=== PATIENT | male | born 1945 | race Hispanic/Latino ===

== ENCOUNTER → 2018-08-02 | Outpatient (CLI) | payer MEDICARE ==
[~2018-08-02] MED LIST: ACET1TAB25 PO; CARV12.511 PO; CORTSOL AD; CYCL30DR OP; GABA-531 PO; PANT40TA25 PO; RAMI10CA69 PO; ROSU20TA PO; SITA1TAB6 PO; TRAZ-187 PO
== END | disposition home or self-care (01) ==
LOC: RAH 09:24
PROVIDERS: ATTEND Physical Medicine & Rehabilitation
DX: M54.16 Radiculopathy, lumbar region (principal); M17.11 Unilateral primary osteoarthritis, right knee; M25.861 Other specified joint disorders, right knee
CPT/HCPCS: 72114; 73560

== ENCOUNTER → 2019-06-26 | Outpatient (CLI) | payer MEDICARE ==
[~2019-06-26] MED LIST changes: -ROSU20TA PO; +ROSU20TA23 PO
== END | disposition home or self-care (01) ==
LOC: OIH 08:38
PROVIDERS: ATTEND Family Medicine
DX: I10 Essential (primary) hypertension (principal); I70.0 Atherosclerosis of aorta; M47.816 Spondylosis without myelopathy or radiculopathy, lumbar region
CPT/HCPCS: 71046

== ENCOUNTER 2020-04-11 15:30 | Inpatient (IN) | payer OTHER, MEDICARE ==
[~2020-04-11] VITALS: Ht 172.7 cm; Wt 84.8 kg
[~2020-04-11 15:30] MED LIST changes: -CORTSOL AD; +DONE10TA36 PO; +EVOL140P3 SQ; +FAMO20TA8 PO; -GABA-531 PO; +INSU300I SQ; +MEMA10TA55 PO; +OLAN15TA18 PO; -PANT40TA25 PO; +PANT40TA55 PO; -SITA1TAB6 PO; -TRAZ-187 PO
[2020-04-11 17:06] LABS: BASOPHILS % (AUTO) 0.2 % (0.0-5.0); EOSINOPHILS % (AUTO) 2.2 % (0.0-8.0); HEMATOCRIT 43.8 % (42-54); MEAN CORPUSCULAR HGB CONC 33.6 g/dL (32.0-36.0); MEAN CORPUSCULAR VOLUME 92.4 fL (79-99); NEUTROPHILS % (AUTO) 65.2 % (40.0-77.0); PLATELET COUNT (AUTO) 394 K/uL (130-400); RED BLOOD CELL COUNT(AUTO) 4.74 MIL/uL (4.50-6.20); RED CELL DISTRIBUTION WIDTH 13.5 % (11.0-15.5)
[2020-04-11 17:14] LABS: ABG BASE EXCESS -6.9 mmol/L (-2.0-3.0); ABG HCO3 17.4 mmol/L (21.0-28.0); ABG OXYGEN SATURATION 95.6 % (95.0-99.0); ABG PCO2 32 mmHg (35-48)
[2020-04-11 17:15] LABS: INR 0.96 (0.85-1.15); PARTIAL THROMBOPLASTIN TIME 35.1 SEC (26.3-35.5); PROTHROMBIN TIME 10.4 SEC (9.6-11.6)
[2020-04-11 17:27] LABS: FERRITIN 479 ng/mL (30-400)
[2020-04-11 17:35] LABS: CREATININE 1.3 mg/dL (0.5-1.5); POTASSIUM 4.2 mmol/L (3.5-5.1)
[2020-04-11 17:40] LABS: ALBUMIN 2.9 g/dL (3.5-5.0); BILIRUBIN,TOTAL 0.5 mg/dL (0.2-1.0); TOTAL PROTEIN, SERUM 8.7 g/dL (6.0-8.3)
[2020-04-11 18:25] LABS: B-TYPE NATRIURETIC PEPTIDE 212 pg/mL (0-100)
[2020-04-11] MEDS ORDERED: DEXAMETHASONE SOD PHOSPHATE 4 MG/ML 1ML VIAL ONE (20:04)
[2020-04-11] MEDS ORDERED: ENOXAPARIN SODIUM 80 MG/0.8 ML SQ SCH (21:00)
[2020-04-11] MEDS: INSULIN R PO SS1 SQ SCH (21:00)
[2020-04-12 05:54] LABS: HEMATOCRIT 40.8 % (42-54); LYMPHOCYTES % (AUTO) 19.7 % (21.0-51.0); MEAN CORPUSCULAR HEMOGLOBIN 32.7 pg (27.0-33.0); MEAN CORPUSCULAR HGB CONC 35.3 g/dL (32.0-36.0); MEAN CORPUSCULAR VOLUME 92.5 fL (79-99); MONOCYTES % (AUTO) 3.5 % (3.0-13.0); NEUTROPHILS % (AUTO) 76.1 % (40.0-77.0); PLATELET COUNT (AUTO) 412 K/uL (130-400); RED BLOOD CELL COUNT(AUTO) 4.41 MIL/uL (4.50-6.20); RED CELL DISTRIBUTION WIDTH 13.4 % (11.0-15.5); WHITE BLOOD COUNT (AUTO) 5.5 K/uL (4.8-10.8)
[2020-04-12 06:32] LABS: ALANINE AMINOTRANSFERASE 13 U/L (12-78); ALBUMIN 2.5 g/dL (3.5-5.0); ASPARTATE AMINOTRANSFERASE 31 U/L (10-37); BILIRUBIN,TOTAL 0.4 mg/dL (0.2-1.0); CARBON DIOXIDE 23 mmol/L (21-32); CHLORIDE 99 mmol/L (101-111); CREATININE 1.3 mg/dL (0.5-1.5); GLOMERULAR FILTR. RATE CALC 57 mL/min (>60); GLUCOSE,RANDOM 312 mg/dL (70-105); POTASSIUM 4.8 mmol/L (3.5-5.1); SODIUM SERUM 136 mmol/L (136-145); TOTAL PROTEIN, SERUM 7.9 g/dL (6.0-8.3); UREA NITROGEN, BLOOD 28 mg/dL (7-18)
[2020-04-12] MEDS: INSULIN R PO SS1 SQ SCH ×4 (07:30→21:00)
[2020-04-12] MEDS: DEXAMETHASONE SOD PHOSPHATE 4 MG/ML 1ML VIAL IVP SCH (09:00)
[2020-04-12] MEDS ORDERED: ENOXAPARIN SODIUM 60 MG/0.6 ML SQ ONE (10:15)
[2020-04-12] MEDS ORDERED: INSULIN HUMULIN R 100 UNIT/ML 3ML ONE ×3 (10:16→18:28)
[2020-04-12] MEDS ORDERED: ENOXAPARIN SODIUM 0.5 MG/KG EACH SQ SCH (11:00)
[2020-04-12] MEDS ORDERED: ZOLPIDEM TARTRATE 5 MG TAB PO PRN (11:00)
[2020-04-12] MEDS ORDERED: HYDRALAZINE HCL 20 MG/ML VIAL IV PRN (11:00)
[2020-04-12] MEDS ORDERED: IPRATROPIUM/ALBUTEROL SULFATE 3 ML SOLUTION IH PRN (11:00)
[2020-04-12] MEDS: FUROSEMIDE 10 MG/ML 4ML VIAL IV SCH (11:00)
[2020-04-12] MEDS ORDERED: ONDANSETRON HCL 4 MG/2 ML VIAL IVP PRN (11:00)
[2020-04-12] MEDS ORDERED: LACTULOSE 20 GM/30 ML UDCUP PO PRN (11:00)
[2020-04-12] MEDS ORDERED: ENOXAPARIN SODIUM 40 MG/0.4 ML SYRINGE SQ SCH (11:15)
[2020-04-12 11:45] LABS: ABG BASE EXCESS -5.6 mmol/L (-2.0-3.0); ABG HCO3 19.5 mmol/L (21.0-28.0); ABG OXYGEN SATURATION 94.9 % (95.0-99.0); ABG PCO2 37 mmHg (35-48)
--- NOTE | 2020-04-12 15:28 | NUR ---
INITIAL SW spoke with patient's son, Christy Maki, [phone]. Patient lives with spouse, Skyla Maki. Spouse presently hospitalized at this hospital with COVID 19. Patient has no Home health but does have PHC with [facility] 15 hours a week. Son is provider. DME: shower chair, cane, CPAP, glucometer (uses insulin). Patient is able to complete ADL's independently as per son but may need some help upon discharge. Patient drives. PCP is Dr. Srikanth Mera. Pharmacy is [facility]. DCP is home. As per son, patient and patient's spouse were exposed to oil transport driver from [facility] that was positive for COVID 19. Son is presently in quarantine as well. Patient's correct address: [address] [place] [id number] Addendum: 04/12/20 at 1535 by DENISSE SEGOVIA SS Amended: Links added.
[2020-04-12] MEDS ORDERED: ALBUTEROL INHALER 90MCG/INH IH PRN (16:15)
[2020-04-12] MEDS ORDERED: CARVEDILOL 12.5 MG TABLET PO ONE (20:45)
[2020-04-12] MEDS ORDERED: FUROSEMIDE 10 MG/ML 4ML VIAL ONE (20:45)
[2020-04-12] MEDS: FAMOTIDINE 20MG TAB 20 MG TAB PO SCH (21:00)
[2020-04-12] MEDS: ATORVASTATIN CALCIUM 40 MG TABLET PO SCH (21:00)
[2020-04-12] MEDS: CARVEDILOL 12.5 MG TABLET PO SCH (21:00)
[2020-04-12] MEDS: OLANZAPINE 5 MG TAB PO SCH (21:00)
[2020-04-13 04:48] LABS: BASOPHILS % (AUTO) 0.1 % (0.0-5.0); HEMATOCRIT 41.7 % (42-54); LYMPHOCYTES % (AUTO) 18.1 % (21.0-51.0); MEAN CORPUSCULAR HEMOGLOBIN 31.9 pg (27.0-33.0); MEAN CORPUSCULAR VOLUME 91.2 fL (79-99); MONOCYTES % (AUTO) 9.9 % (3.0-13.0); NEUTROPHILS % (AUTO) 71.4 % (40.0-77.0); NUCLEATED RED BLOOD CELLS 0.2 % (0.0-0.19); PLATELET COUNT (AUTO) 468 K/uL (130-400); RED BLOOD CELL COUNT(AUTO) 4.57 MIL/uL (4.50-6.20); RED CELL DISTRIBUTION WIDTH 13.4 % (11.0-15.5); WHITE BLOOD COUNT (AUTO) 8.1 K/uL (4.8-10.8)
[2020-04-13 05:01] LABS: ALANINE AMINOTRANSFERASE 11 U/L (12-78); ALBUMIN 2.7 g/dL (3.5-5.0); ASPARTATE AMINOTRANSFERASE 26 U/L (10-37); BILIRUBIN,TOTAL 0.4 mg/dL (0.2-1.0); CARBON DIOXIDE 29 mmol/L (21-32); CHLORIDE 100 mmol/L (101-111); CREATINE KINASE, TOTAL 65 U/L (21-232); CREATININE 1.4 mg/dL (0.5-1.5); GLOMERULAR FILTR. RATE CALC 53 mL/min (>60); GLUCOSE,RANDOM 239 mg/dL (70-105); LACTATE DEHYDROGENASE 294 U/L (81-234); PHOSPHORUS 3.1 mg/dL (2.5-4.9); POTASSIUM 4.4 mmol/L (3.5-5.1); SODIUM SERUM 138 mmol/L (136-145); TOTAL PROTEIN, SERUM 7.9 g/dL (6.0-8.3); UREA NITROGEN, BLOOD 34 mg/dL (7-18)
[2020-04-13 05:40] LABS: B-TYPE NATRIURETIC PEPTIDE 209 pg/mL (0-100)
[2020-04-13] MEDS: RAMIPRIL 20 MG PO SCH (07:24)
[2020-04-13 08:02] VITALS: BP 137/76
[2020-04-13] MEDS ORDERED: CARVEDILOL 12.5 MG TABLET PO ONE ×2 (08:36→21:39)
[2020-04-13] MEDS ORDERED: FUROSEMIDE 10 MG/ML 4ML VIAL ONE (08:36)
[2020-04-13] MEDS ORDERED: DEXAMETHASONE SOD PHOSPHATE 4 MG/ML 1ML VIAL ONE (08:36)
[2020-04-13] MEDS ORDERED: PANTOPRAZOLE SODIUM 40 MG TABLET.DR ONE (08:36)
[2020-04-13] MEDS ORDERED: MEMANTINE HCL 5 MG TABLET ONE (08:37)
[2020-04-13] MEDS ORDERED: RESTASIS OPTHL OP PRN (09:00)
[2020-04-13] MEDS ORDERED: INSULIN HUMULIN R 100 UNIT/ML 3ML ONE ×4 (09:04→21:41)
[2020-04-13] MEDS: INSULIN GLARGINE 100 UNITS/ML 10 ML VIAL SQ SCH (09:08)
[2020-04-13] MEDS: INSULIN R PO SS1 SQ SCH ×4 (09:08→21:43)
[2020-04-13] MEDS: FUROSEMIDE 10 MG/ML 4ML VIAL IV SCH (09:09)
[2020-04-13] MEDS: PANTOPRAZOLE SODIUM 40 MG TABLET.DR PO SCH (09:09)
[2020-04-13] MEDS: DEXAMETHASONE SOD PHOSPHATE 4 MG/ML 1ML VIAL IVP SCH (09:09)
[2020-04-13] MEDS: MEMANTINE HCL 5 MG TABLET PO SCH (09:09)
[2020-04-13] MEDS: CARVEDILOL 12.5 MG TABLET PO SCH ×2 (09:10→21:54)
[2020-04-13] MEDS: DONEPEZIL HCL 5 MG TAB PO SCH (10:23)
[2020-04-13] MEDS: ENOXAPARIN SODIUM 80 MG/0.8 ML SQ SCH (10:24)
[2020-04-13 11:51] VITALS: BP 127/71
[2020-04-13 16:00] VITALS: BP 111/58
[2020-04-13 20:00] VITALS: BP 147/94
[2020-04-13] MEDS: OLANZAPINE 5 MG TAB PO SCH (21:00)
[2020-04-13] MEDS: FAMOTIDINE 20MG TAB 20 MG TAB PO SCH (21:00)
[2020-04-13] MEDS ORDERED: ATORVASTATIN CALCIUM 40 MG TABLET ONE (21:38)
[2020-04-13] MEDS: ATORVASTATIN CALCIUM 40 MG TABLET PO SCH (21:54)
[2020-04-14] VITALS: BP 134/83
[2020-04-14 04:56] LABS: ABG BASE EXCESS 2.9 mmol/L (-2.0-3.0); ABG HCO3 26.2 mmol/L (21.0-28.0); ABG OXYGEN SATURATION 88.2 % (95.0-99.0); ABG PCO2 36 mmHg (35-48)
[2020-04-14 06:56] LABS: BASOPHILS % (AUTO) 0.1 % (0.0-5.0); HEMATOCRIT 43.4 % (42-54); LYMPHOCYTES % (AUTO) 15.6 % (21.0-51.0); MEAN CORPUSCULAR HEMOGLOBIN 31.1 pg (27.0-33.0); MEAN CORPUSCULAR HGB CONC 34.1 g/dL (32.0-36.0); MEAN CORPUSCULAR VOLUME 91.2 fL (79-99); MONOCYTES % (AUTO) 8.5 % (3.0-13.0); NEUTROPHILS % (AUTO) 75.4 % (40.0-77.0); NUCLEATED RED BLOOD CELLS 0.2 % (0.0-0.19); PLATELET COUNT (AUTO) 537 K/uL (130-400); RED BLOOD CELL COUNT(AUTO) 4.76 MIL/uL (4.50-6.20); RED CELL DISTRIBUTION WIDTH 13.4 % (11.0-15.5); WHITE BLOOD COUNT (AUTO) 8.1 K/uL (4.8-10.8)
[2020-04-14 07:42] LABS: ALBUMIN 2.8 g/dL (3.5-5.0); BILIRUBIN,DIRECT 0.2 mg/dL (0.0-0.3); BILIRUBIN,TOTAL 0.5 mg/dL (0.2-1.0); CREATININE 1.5 mg/dL (0.5-1.5); POTASSIUM 4.5 mmol/L (3.5-5.1); TOTAL PROTEIN, SERUM 8.5 g/dL (6.0-8.3)
[2020-04-14] MEDS: RAMIPRIL 20 MG PO SCH (09:00)
[2020-04-14] MEDS ORDERED: FUROSEMIDE 10 MG/ML 4ML VIAL ONE (09:58)
[2020-04-14] MEDS ORDERED: ATORVASTATIN CALCIUM 40 MG TABLET ONE ×2 (09:58→22:09)
[2020-04-14] MEDS ORDERED: DEXAMETHASONE SOD PHOSPHATE 4 MG/ML 1ML VIAL ONE ×2 (09:58→10:30)
[2020-04-14] MEDS ORDERED: ENOXAPARIN SODIUM 40 MG/0.4 ML SYRINGE SQ ONE (09:59)
[2020-04-14] MEDS ORDERED: CARVEDILOL 12.5 MG TABLET PO ONE ×2 (09:59→22:08)
[2020-04-14] MEDS ORDERED: PANTOPRAZOLE SODIUM 40 MG TABLET.DR ONE (09:59)
[2020-04-14] MEDS ORDERED: MEMANTINE HCL 5 MG TABLET ONE ×2 (09:59→10:31)
[2020-04-14] MEDS ORDERED: INSULIN HUMULIN R 100 UNIT/ML 3ML ONE ×4 (10:00→22:11)
[2020-04-14] MEDS: FUROSEMIDE 10 MG/ML 4ML VIAL IV SCH (10:14)
[2020-04-14] MEDS: CARVEDILOL 12.5 MG TABLET PO SCH ×2 (10:15→22:12)
[2020-04-14] MEDS: INSULIN R PO SS1 SQ SCH ×4 (10:18→22:56)
[2020-04-14] MEDS: INSULIN GLARGINE 100 UNITS/ML 10 ML VIAL SQ SCH (10:20)
[2020-04-14] MEDS: PANTOPRAZOLE SODIUM 40 MG TABLET.DR PO SCH (10:33)
[2020-04-14] MEDS: DEXAMETHASONE SOD PHOSPHATE 4 MG/ML 1ML VIAL IVP SCH (10:34)
[2020-04-14] MEDS: MEMANTINE HCL 5 MG TABLET PO SCH (10:34)
[2020-04-14] MEDS: ENOXAPARIN SODIUM 80 MG/0.8 ML SQ SCH (10:35)
[2020-04-14] MEDS: DONEPEZIL HCL 5 MG TAB PO SCH (11:07)
[2020-04-14 12:00] VITALS: BP 133/80
[2020-04-14] MEDS ORDERED: AZITHROMYCIN 500MG+NS 250ML 250 ML IV ONE (15:31)
[2020-04-14 15:35] LABS: ABG BASE EXCESS 1.8 mmol/L (-2.0-3.0); ABG HCO3 25.8 mmol/L (21.0-28.0); ABG OXYGEN SATURATION 93.4 % (95.0-99.0); ABG PCO2 39 mmHg (35-48)
[2020-04-14] MEDS: AZITHROMYCIN 500MG+NS 250ML 250 ML IV SCH (15:41)
[2020-04-14 16:00] VITALS: BP 149/81
[2020-04-14 20:00] VITALS: BP 115/52
[2020-04-14] MEDS: FAMOTIDINE 20MG TAB 20 MG TAB PO SCH (21:00)
[2020-04-14] MEDS: OLANZAPINE 5 MG TAB PO SCH (21:00)
[2020-04-14] MEDS ORDERED: PREGABALIN 25 MG CAP ONE (22:10)
[2020-04-14] MEDS: ATORVASTATIN CALCIUM 40 MG TABLET PO SCH (22:12)
[2020-04-15] VITALS (7 sets, daily range): BP systolic 100–144; BP diastolic 53–83
[2020-04-15] MEDS ORDERED: INSULIN HUMULIN R 100 UNIT/ML 3ML ONE (06:12)
--- NOTE | 2020-04-15 06:30 | NUR ---
pt transferred to second floor full report given
--- NOTE | 2020-04-15 06:30 | NUR ---
ADMISSION PATIENT ARRIVED VIA BED TO ROOM 232. BREATHING REGULAR AND UNLABORED ON 100% NON REBREATHER. AAOX2. REORIENTED TO TIME. ASSESSMENT COMPLETED. ADMISSION COMPLETED IN ED. NO ACUTE SIGNS OR SYMPTOMS OF DISTRESS NOTED. PLAN OF CARE DISCUSSED. ORIENTED TO ROOM. CALL LIGHT IN REACH
[2020-04-15] MEDS: INSULIN R PO SS1 SQ SCH ×4 (06:37→22:18)
[2020-04-15] MEDS: INSULIN GLARGINE 100 UNITS/ML 10 ML VIAL SQ SCH ×2 (06:38→22:17)
[2020-04-15] MEDS: INSULIN HUMULIN R 100 UNIT/ML 3ML SQ SCH ×4 (06:39→18:39)
[2020-04-15] MEDS: FUROSEMIDE 10 MG/ML 4ML VIAL IV SCH (08:56)
[2020-04-15] MEDS: ENOXAPARIN SODIUM 80 MG/0.8 ML SQ SCH (08:57)
[2020-04-15] MEDS: DEXAMETHASONE SOD PHOSPHATE 4 MG/ML 1ML VIAL IVP SCH (08:58)
[2020-04-15] MEDS: DONEPEZIL HCL 5 MG TAB PO SCH (08:58)
[2020-04-15] MEDS ORDERED: DOXYCYCLINE HYCLATE 100 MG TABLET PO SCH (09:00)
[2020-04-15] MEDS: RAMIPRIL 20 MG PO SCH (09:00)
[2020-04-15] MEDS: PANTOPRAZOLE SODIUM 40 MG TABLET.DR PO SCH (09:01)
[2020-04-15] MEDS: MEMANTINE HCL 5 MG TABLET PO SCH (09:01)
[2020-04-15] MEDS: CARVEDILOL 12.5 MG TABLET PO SCH ×2 (09:03→22:26)
[2020-04-15] MEDS: AZITHROMYCIN 500MG+NS 250ML 250 ML IV SCH (14:20)
--- NOTE | 2020-04-15 18:30 | NUR ---
DR SHANNON ORTEGA HERE TO SEE PT, MADE AWARE OF BS AND NO HIGH FLOW NC AVAILABLE, STATES TO OBTAIN AND PLACE ON PT WHEN AVAILABLE. RT MADE AWARE
[2020-04-15] MEDS: DOXYCYCLINE HYCLATE 100 MG TABLET PO SCH ×2 (21:00→22:25)
[2020-04-15] MEDS: ATORVASTATIN CALCIUM 40 MG TABLET PO SCH (22:25)
[2020-04-15] MEDS: OLANZAPINE 5 MG TAB PO SCH (22:25)
[2020-04-15] MEDS: FAMOTIDINE 20MG TAB 20 MG TAB PO SCH (22:26)
[2020-04-16] VITALS (7 sets, daily range): BP systolic 109–135; BP diastolic 54–85
[2020-04-16] MEDS: INSULIN HUMULIN R 100 UNIT/ML 3ML SQ SCH ×4 (01:49→17:36)
[2020-04-16 05:35] LABS: ABG BASE EXCESS 2.8 mmol/L (-2.0-3.0); ABG HCO3 26.3 mmol/L (21.0-28.0); ABG OXYGEN SATURATION 86.4 % (95.0-99.0); ABG PCO2 37 mmHg (35-48)
[2020-04-16] MEDS: INSULIN R PO SS1 SQ SCH (06:42)
[2020-04-16] MEDS: INSULIN GLARGINE 100 UNITS/ML 10 ML VIAL SQ SCH ×2 (06:55→20:45)
[2020-04-16 07:01] LABS: HEMATOCRIT 42.9 % (42-54); MEAN CORPUSCULAR HEMOGLOBIN 30.7 pg (27.0-33.0); MEAN CORPUSCULAR HGB CONC 33.8 g/dL (32.0-36.0); MEAN CORPUSCULAR VOLUME 90.7 fL (79-99); RED BLOOD CELL COUNT(AUTO) 4.73 MIL/uL (4.50-6.20); RED CELL DISTRIBUTION WIDTH 13.2 % (11.0-15.5); WHITE BLOOD COUNT (AUTO) 10.6 K/uL (4.8-10.8)
[2020-04-16 07:05] LABS: INR 0.99 (0.85-1.15); PROTHROMBIN TIME 10.7 SEC (9.6-11.6)
[2020-04-16 07:31] LABS: ALBUMIN 2.5 g/dL (3.5-5.0); BILIRUBIN,TOTAL 0.4 mg/dL (0.2-1.0); CREATININE 1.5 mg/dL (0.5-1.5); PHOSPHORUS 3.1 mg/dL (2.5-4.9); POTASSIUM 4.2 mmol/L (3.5-5.1); TOTAL PROTEIN, SERUM 7.4 g/dL (6.0-8.3)
[2020-04-16] MEDS: RAMIPRIL 20 MG PO SCH (09:00)
[2020-04-16] MEDS: DEXAMETHASONE SOD PHOSPHATE 4 MG/ML 1ML VIAL IVP SCH (09:45)
[2020-04-16] MEDS: DONEPEZIL HCL 5 MG TAB PO SCH (09:45)
[2020-04-16] MEDS: FUROSEMIDE 10 MG/ML 4ML VIAL IV SCH (09:45)
[2020-04-16] MEDS: PANTOPRAZOLE SODIUM 40 MG TABLET.DR PO SCH (09:46)
[2020-04-16] MEDS: MEMANTINE HCL 5 MG TABLET PO SCH (09:46)
[2020-04-16] MEDS: DOXYCYCLINE HYCLATE 100 MG TABLET PO SCH ×2 (09:46→20:43)
[2020-04-16] MEDS: CARVEDILOL 12.5 MG TABLET PO SCH ×2 (09:46→20:43)
--- NOTE | 2020-04-16 10:30 | NUR ---
YULIYA BROOKSP ROUNDING FOR BENCHMARK. REPORTED LACTIC ACID OF 3.1, REPEAT 3.0. SHE STATED NO NEW ORDERS.
[2020-04-16] MEDS: AZITHROMYCIN 500MG+NS 250ML 250 ML IV SCH (16:21)
[2020-04-16] MEDS: FAMOTIDINE 20MG TAB 20 MG TAB PO SCH (20:42)
[2020-04-16] MEDS: OLANZAPINE 5 MG TAB PO SCH (20:43)
[2020-04-16] MEDS: ATORVASTATIN CALCIUM 40 MG TABLET PO SCH (20:43)
[2020-04-16] MEDS: ENOXAPARIN SODIUM 80 MG/0.8 ML SQ SCH (20:44)
[2020-04-17] VITALS (9 sets, daily range): BP systolic 92–141; BP diastolic 36–82
[2020-04-17] MEDS: INSULIN HUMULIN R 100 UNIT/ML 3ML SQ SCH ×4 (01:25→18:00)
[2020-04-17 05:41] LABS: BASOPHILS % (AUTO) 0.1 % (0.0-5.0); EOSINOPHILS % (AUTO) 0.1 % (0.0-8.0); HEMATOCRIT 40.5 % (42-54); LYMPHOCYTES % (AUTO) 16.9 % (21.0-51.0); MEAN CORPUSCULAR HEMOGLOBIN 31.1 pg (27.0-33.0); MEAN CORPUSCULAR HGB CONC 34.8 g/dL (32.0-36.0); MEAN CORPUSCULAR VOLUME 89.2 fL (79-99); MONOCYTES % (AUTO) 3.3 % (3.0-13.0); NEUTROPHILS % (AUTO) 78.9 % (40.0-77.0); NUCLEATED RED BLOOD CELLS 0.2 % (0.0-0.19); PLATELET COUNT (AUTO) 388 K/uL (130-400); RED BLOOD CELL COUNT(AUTO) 4.54 MIL/uL (4.50-6.20); RED CELL DISTRIBUTION WIDTH 12.9 % (11.0-15.5); WHITE BLOOD COUNT (AUTO) 8.5 K/uL (4.8-10.8)
[2020-04-17 05:56] LABS: CREATININE 1.4 mg/dL (0.5-1.5); POTASSIUM 3.3 mmol/L (3.5-5.1)
[2020-04-17] MEDS: INSULIN GLARGINE 100 UNITS/ML 10 ML VIAL SQ SCH ×2 (06:30→21:19)
[2020-04-17] MEDS: RAMIPRIL 20 MG PO SCH (09:00)
[2020-04-17] MEDS: FUROSEMIDE 10 MG/ML 4ML VIAL IV SCH (10:27)
[2020-04-17] MEDS: MEMANTINE HCL 5 MG TABLET PO SCH (10:29)
[2020-04-17] MEDS: ENOXAPARIN SODIUM 80 MG/0.8 ML SQ SCH ×2 (10:29→20:57)
[2020-04-17] MEDS: DEXAMETHASONE SOD PHOSPHATE 4 MG/ML 1ML VIAL IVP SCH (10:30)
[2020-04-17] MEDS: PANTOPRAZOLE SODIUM 40 MG TABLET.DR PO SCH (10:30)
[2020-04-17] MEDS: DOXYCYCLINE HYCLATE 100 MG TABLET PO SCH ×2 (10:30→20:55)
[2020-04-17] MEDS: DONEPEZIL HCL 5 MG TAB PO SCH (10:30)
[2020-04-17] MEDS: CARVEDILOL 12.5 MG TABLET PO SCH ×2 (10:31→20:56)
--- NOTE | 2020-04-17 12:00 | NUR ---
patient satting in the 80s made ANDRZEJ Asher aware she ordered an ABG will continue to monitor.
[2020-04-17 12:23] LABS: ABG BASE EXCESS 3.2 mmol/L (-2.0-3.0); ABG HCO3 25.9 mmol/L (21.0-28.0); ABG OXYGEN SATURATION 86.3 % (95.0-99.0); ABG PCO2 34 mmHg (35-48)
--- NOTE | 2020-04-17 13:00 | NUR ---
ANDRZEJ Asher sent the patients ABG to the physician awaiting new orders patient still satting in the 80s and tachypenic on exertion
[2020-04-17] MEDS ORDERED: POTASSIUM CHLORIDE 10% ELIXIR 20 MEQ/15 ML UDCUP PO PRN (14:15)
[2020-04-17] MEDS ORDERED: LIDOCAINE HCL-MPF 1% 2ML VIAL IV PRN ×2 (14:15)
[2020-04-17] MEDS ORDERED: HALOPERIDOL LACTATE 5 MG/ML VIAL IM PRN (14:15)
[2020-04-17] MEDS ORDERED: QUETIAPINE FUMARATE 25 MG TAB PO PRN (14:15)
[2020-04-17] MEDS ORDERED: POTASSIUM CHLORIDE 20MEQ/100ML 100 ML IV PRN ×2 (14:15)
--- NOTE | 2020-04-17 15:00 | NUR ---
Dr Hunter rounded on the patient and order the patient be transferred to ICU
[2020-04-17] MEDS ORDERED: SODIUM CHLORIDE 0.9% 100 ML IV ONE (15:17)
--- NOTE | 2020-04-17 16:30 | NUR ---
Transferred patient to ICU room 19 Elissa receiving nurse given report via telephone and bedside
[2020-04-17] MEDS: FAMOTIDINE 20MG TAB 20 MG TAB PO SCH (20:55)
[2020-04-17] MEDS: ATORVASTATIN CALCIUM 40 MG TABLET PO SCH (20:55)
[2020-04-17] MEDS: OLANZAPINE 5 MG TAB PO SCH (20:56)
[2020-04-17] MEDS: CEFEPIME HCL 2 GM VIAL IVP SCH (21:24)
[2020-04-18] VITALS (23 sets, daily range): BP systolic 93–155; BP diastolic 49–98
[2020-04-18] MEDS: INSULIN HUMULIN R 100 UNIT/ML 3ML SQ SCH ×5 (00:23→23:54)
[2020-04-18 04:13] LABS: ABG BASE EXCESS 1.5 mmol/L (-2.0-3.0); ABG HCO3 23.9 mmol/L (21.0-28.0); ABG OXYGEN SATURATION 90.3 % (95.0-99.0); ABG PCO2 32 mmHg (35-48)
[2020-04-18 04:26] LABS: HEMATOCRIT 41.3 % (42-54); MEAN CORPUSCULAR HEMOGLOBIN 31.7 pg (27.0-33.0); MEAN CORPUSCULAR HGB CONC 35.1 g/dL (32.0-36.0); MEAN CORPUSCULAR VOLUME 90.4 fL (79-99); RED BLOOD CELL COUNT(AUTO) 4.57 MIL/uL (4.50-6.20); RED CELL DISTRIBUTION WIDTH 13.1 % (11.0-15.5); WHITE BLOOD COUNT (AUTO) 9.3 K/uL (4.8-10.8)
[2020-04-18 04:52] LABS: ALBUMIN 2.3 g/dL (3.5-5.0); BILIRUBIN,TOTAL 0.7 mg/dL (0.2-1.0); CREATININE 1.2 mg/dL (0.5-1.5); MAGNESIUM 1.5 mg/dL (1.80-2.40); PHOSPHORUS 4.3 mg/dL (2.5-4.9); POTASSIUM 3.4 mmol/L (3.5-5.1); TOTAL PROTEIN, SERUM 7.5 g/dL (6.0-8.3)
[2020-04-18] MEDS: CEFEPIME HCL 2 GM VIAL IVP SCH (06:25)
[2020-04-18] MEDS: INSULIN GLARGINE 100 UNITS/ML 10 ML VIAL SQ SCH ×2 (06:28→23:53)
[2020-04-18] MEDS: DEXAMETHASONE SOD PHOSPHATE 4 MG/ML 1ML VIAL IVP SCH (09:04)
[2020-04-18] MEDS: CEFEPIME HCL 1 GM VIAL IVP SCH ×3 (09:04→23:32)
[2020-04-18] MEDS: PANTOPRAZOLE SODIUM 40 MG TABLET.DR PO SCH (09:05)
[2020-04-18] MEDS: DOXYCYCLINE HYCLATE 100 MG TABLET PO SCH ×2 (09:05→23:34)
[2020-04-18] MEDS: DONEPEZIL HCL 5 MG TAB PO SCH (09:05)
[2020-04-18] MEDS: CARVEDILOL 12.5 MG TABLET PO SCH ×2 (09:05→23:47)
[2020-04-18] MEDS: FUROSEMIDE 10 MG/ML 4ML VIAL IV SCH ×3 (09:05→23:32)
[2020-04-18] MEDS: MEMANTINE HCL 5 MG TABLET PO SCH (09:06)
[2020-04-18] MEDS: ENOXAPARIN SODIUM 80 MG/0.8 ML SQ SCH ×2 (09:07→23:36)
[2020-04-18] MEDS: RAMIPRIL 20 MG PO SCH (09:08)
--- NOTE | 2020-04-18 11:18 | NUR ---
RDSCREEN - LOS X 7 Pt admitted with hypoxemia, positive for COVID-19. Hx of DM, HTN. Pt with Clear Liquid diet order in place. 50% PO intake. Elevated BG, Decreased serum magnesium levels. Hypoxemia, Nasal cannula in place. Pt with increased protein needs due to dyspnea. Recommend Advance diet as tolerated to 60gm CCD when medically feasible Recommend Glucerna QD, 60mL ProMod QD Recommend 500mg Vitamin C (BID), 220mg ZnSO4 (QD). RD to continue to monitor. Please notify as additional nutrition concerns arise. Thank you.
[2020-04-18] MEDS ORDERED: HALOPERIDOL DECANOATE 100 MG/ML ML IM SCH (12:00)
[2020-04-18] MEDS ORDERED: SODIUM CHLORIDE 0.9% 250 ML IV ONE (12:29)
[2020-04-18] MEDS ORDERED: HALOPERIDOL LACTATE 5 MG/ML VIAL IM PRN (14:15)
[2020-04-18] MEDS ORDERED: MORPHINE SULFATE 2 MG/ML 1ML SYG IVP PRN (17:15)
[2020-04-18] MEDS ORDERED: LORAZEPAM 2 MG/ML 1 ML VIAL IVP PRN (17:15)
--- NOTE | 2020-04-18 22:13 | NUR ---
NOTE PATIENT ARRIVED FROM 2ND FLOOR RM 219 VIA WHEELCHAIR. PROVIDED CALL LIGHT AND ORIENTED TO ROOM.
[2020-04-18] MEDS: OLANZAPINE 5 MG TAB PO SCH (23:33)
[2020-04-18] MEDS: ATORVASTATIN CALCIUM 40 MG TABLET PO SCH (23:34)
[2020-04-18] MEDS: FAMOTIDINE 20MG TAB 20 MG TAB PO SCH (23:34)
[2020-04-19] VITALS (7 sets, daily range): BP systolic 97–133; BP diastolic 47–70
[2020-04-19 04:20] LABS: ABG BASE EXCESS 4.1 mmol/L (-2.0-3.0); ABG HCO3 26.8 mmol/L (21.0-28.0); ABG OXYGEN SATURATION 84.3 % (95.0-99.0); ABG PCO2 34 mmHg (35-48)
[2020-04-19 05:24] LABS: BASOPHILS % (AUTO) 0.1 % (0.0-5.0); EOSINOPHILS % (AUTO) 0.1 % (0.0-8.0); LYMPHOCYTES % (AUTO) 14.3 % (21.0-51.0); MEAN CORPUSCULAR HEMOGLOBIN 31.1 pg (27.0-33.0); MEAN CORPUSCULAR HGB CONC 34.9 g/dL (32.0-36.0); MEAN CORPUSCULAR VOLUME 89.2 fL (79-99); MONOCYTES % (AUTO) 3.2 % (3.0-13.0); NEUTROPHILS % (AUTO) 81.5 % (40.0-77.0); PLATELET COUNT (AUTO) 394 K/uL (130-400); RED BLOOD CELL COUNT(AUTO) 4.82 MIL/uL (4.50-6.20); WHITE BLOOD COUNT (AUTO) 10.1 K/uL (4.8-10.8)
[2020-04-19 05:34] LABS: ALBUMIN 2.4 g/dL (3.5-5.0); BILIRUBIN,TOTAL 0.8 mg/dL (0.2-1.0); CREATININE 1.3 mg/dL (0.5-1.5); TOTAL PROTEIN, SERUM 8.2 g/dL (6.0-8.3)
[2020-04-19] MEDS: INSULIN HUMULIN R 100 UNIT/ML 3ML SQ SCH ×4 (06:37→21:20)
[2020-04-19] MEDS: FUROSEMIDE 10 MG/ML 4ML VIAL IV SCH ×3 (06:37→17:18)
[2020-04-19] MEDS: INSULIN GLARGINE 100 UNITS/ML 10 ML VIAL SQ SCH ×2 (06:44→21:19)
[2020-04-19] MEDS: CEFEPIME HCL 1 GM VIAL IVP SCH ×2 (08:34→16:12)
[2020-04-19] MEDS: DONEPEZIL HCL 5 MG TAB PO SCH (08:34)
[2020-04-19] MEDS: CARVEDILOL 12.5 MG TABLET PO SCH ×2 (08:34→21:08)
[2020-04-19] MEDS: DOXYCYCLINE HYCLATE 100 MG TABLET PO SCH ×2 (08:34→21:07)
[2020-04-19] MEDS: MEMANTINE HCL 5 MG TABLET PO SCH (08:35)
[2020-04-19] MEDS: DEXAMETHASONE SOD PHOSPHATE 4 MG/ML 1ML VIAL IVP SCH (08:35)
[2020-04-19] MEDS: ENOXAPARIN SODIUM 80 MG/0.8 ML SQ SCH ×2 (08:35→21:09)
[2020-04-19] MEDS: PANTOPRAZOLE SODIUM 40 MG TABLET.DR PO SCH (08:35)
[2020-04-19] MEDS: RAMIPRIL 20 MG PO SCH (08:36)
[2020-04-19] MEDS: POTASSIUM CHLORIDE 20 MEQ ERTAB PO PRN ×2 (09:05→13:10)
[2020-04-19] MEDS: FAMOTIDINE 20MG TAB 20 MG TAB PO SCH (21:07)
[2020-04-19] MEDS: ATORVASTATIN CALCIUM 40 MG TABLET PO SCH (21:07)
[2020-04-19] MEDS: OLANZAPINE 5 MG TAB PO SCH (21:07)
[2020-04-20] MEDS: CEFEPIME HCL 1 GM VIAL IVP SCH ×4 (00:31→23:37)
[2020-04-20] MEDS: FUROSEMIDE 10 MG/ML 4ML VIAL IV SCH ×5 (00:32→23:37)
[2020-04-20 03:53] VITALS: BP 116/72
--- NOTE | 2020-04-20 04:17 | NUR ---
NOTE PATIENT HAS BEEN COMPLIANT, NO EPISODES OF AGITATION OR CONFUSION. HAS BEEN KEEPING ON NASAL CANNULA AND NON REBREATHER ON.
[2020-04-20] MEDS: INSULIN GLARGINE 100 UNITS/ML 10 ML VIAL SQ SCH ×2 (06:36→21:01)
[2020-04-20] MEDS: INSULIN HUMULIN R 100 UNIT/ML 3ML SQ SCH ×4 (06:37→21:02)
[2020-04-20] MEDS: RAMIPRIL 20 MG PO SCH (07:49)
[2020-04-20 08:00] VITALS: BP 96/63
[2020-04-20] MEDS: DOXYCYCLINE HYCLATE 100 MG TABLET PO SCH ×2 (09:05→21:17)
[2020-04-20] MEDS: CARVEDILOL 12.5 MG TABLET PO SCH ×2 (09:06→21:04)
[2020-04-20] MEDS: DEXAMETHASONE SOD PHOSPHATE 4 MG/ML 1ML VIAL IVP SCH (09:06)
[2020-04-20] MEDS: MEMANTINE HCL 5 MG TABLET PO SCH (09:06)
[2020-04-20] MEDS: PANTOPRAZOLE SODIUM 40 MG TABLET.DR PO SCH (09:06)
[2020-04-20] MEDS: DONEPEZIL HCL 5 MG TAB PO SCH (09:06)
[2020-04-20] MEDS: ENOXAPARIN SODIUM 80 MG/0.8 ML SQ SCH ×2 (09:07→20:59)
[2020-04-20 11:00] VITALS: BP 99/69
--- NOTE | 2020-04-20 11:10 | NUR ---
MICHELE MEDELLINA NOTIFY ME ABOUT PT O2 SAT OF 82-84 %, RT WAS NOTIFY IMMEDIATELY AND EVALUATED THE PT. PT ASYMPTOMATIC AT THE MOMENT WITH NO SOB.
--- NOTE | 2020-04-20 11:30 | NUR ---
RT WAS NOTIFY DUE PT PRESENTING O2 SAT OF 82-84 %. PT ASYMPTOMATIC, CALM AND COOPERATIVE AT THE MOMENT.
[2020-04-20 16:00] VITALS: BP 135/74
--- NOTE | 2020-04-20 16:00 | NUR ---
MD ORDER - COMFORT CARE SW spoke to patient's nurse, Harpal, who informed SW that patient is presently on high flow O2 and is still desating. SW contacted patient's son, Jonas Maki regarding MD orders for comfort care. Son stated that he needed to speak to other family members before making a decision. SW received a call from patient's daughter, Jessie Maki, , daughter, Ellen Maki and daughter in law, Yasmine Maki were also on the call. Daughter, Jessie, asked multiple questions regarding patient's status and condition. CM, Christin Steele, assisted SW in answering family's questions. Daughter stated that family will discuss options and let SW know later today or follow up with SW, Esperanza Almanza, on 04/21/2020. Contact number for Esperanza provided to patient's daughter. Patient's nurse Harpal made aware.
--- NOTE | 2020-04-20 17:21 | NUR ---
TERRI SIMONS DAUGHTER OF THE PT CALLS FOR THE THIRD TIME TODAY AND WAS UPDATED ABOUT THE CONDITION AND TREATMENT THE PT IS GETTING. SHE HAVE QUESTIONS ABOUT TREATMENTS AND HOSPICE, MOST OF THE QUESTIONS WERE ANSWERED AND OTHERS SHE WAS NOTIFY TO CALL TOMORROW TO SPEAK WITH CM.
--- NOTE | 2020-04-20 17:34 | NUR ---
PT CONTINUES WITH O2 SAT AROUND 83-84 % WITH HIGH FLOW AT 60 L AND 100 % O2.
[2020-04-20 20:38] VITALS: BP 100/63
[2020-04-20] MEDS: OLANZAPINE 5 MG TAB PO SCH (21:04)
[2020-04-20] MEDS: FAMOTIDINE 20MG TAB 20 MG TAB PO SCH (21:04)
[2020-04-20] MEDS: ATORVASTATIN CALCIUM 40 MG TABLET PO SCH (21:04)
[2020-04-21 00:07] VITALS: BP 110/60
--- NOTE | 2020-04-21 00:38 | NUR ---
02 sat 02 SAT 94-94%,continues on high flow 02 at 60 L and 100% NRB mask,jose well.Respirations unlabored.Denies pain or sob.
[2020-04-21 04:17] VITALS: BP 136/80
[2020-04-21] MEDS: FUROSEMIDE 10 MG/ML 4ML VIAL IV SCH ×4 (05:23→20:54)
[2020-04-21] MEDS: INSULIN HUMULIN R 100 UNIT/ML 3ML SQ SCH ×4 (05:43→20:58)
[2020-04-21] MEDS: INSULIN GLARGINE 100 UNITS/ML 10 ML VIAL SQ SCH ×2 (06:09→20:59)
--- NOTE | 2020-04-21 06:50 | NUR ---
SOB Pt c/o sob,he takes off his mask,at times.Rt went to check on pt.Pt anxious,encouraged to take deep breathe,sat 80's.
[2020-04-21] MEDS: RAMIPRIL 20 MG PO SCH (07:47)
[2020-04-21] MEDS: PANTOPRAZOLE SODIUM 40 MG TABLET.DR PO SCH (10:15)
[2020-04-21] MEDS: DONEPEZIL HCL 5 MG TAB PO SCH (10:15)
[2020-04-21] MEDS: DEXAMETHASONE SOD PHOSPHATE 4 MG/ML 1ML VIAL IVP SCH (10:16)
[2020-04-21] MEDS: MEMANTINE HCL 5 MG TABLET PO SCH (10:16)
[2020-04-21] MEDS: CARVEDILOL 12.5 MG TABLET PO SCH ×2 (10:16→23:24)
[2020-04-21] MEDS: CEFEPIME HCL 1 GM VIAL IVP SCH ×3 (10:16→23:24)
[2020-04-21] MEDS: ENOXAPARIN SODIUM 80 MG/0.8 ML SQ SCH ×2 (10:17→20:55)
[2020-04-21 12:00] VITALS: BP 113/58
[2020-04-21] MEDS: DOXYCYCLINE HYCLATE 100 MG TABLET PO SCH ×2 (12:18→20:54)
--- NOTE | 2020-04-21 14:41 | NUR ---
HOSPICE Sw recd call from daughter Aniyah Maki [phone]. Daughters states that she spoke to and he did not recommend intubation or CPR for pt and family agreed. Daughter states that she and her 6 siblings do not understand why nurses are saying pt is stable but MD is recommending hospice. SW attempted to explain to daughter reason for inpt hospice and benefits of hospice to keep pt comfortable and manage anxiety. DAughter voiced understand of services, but still had questions and stated they wanted to "see" proof that pt was declining so they can feel better about decision to place on hospice. Aurora [place] [facility] [place]nn Jamil and asked her to contact daughter and explain from a nursing standpoint clinicals for pt. Brynn to call daughter and sister and answer any questions they may have.
--- NOTE | 2020-04-21 15:39 | NUR ---
F/u call with Family Sw present when CMD Brynn Jamil made call to daughters. CMD explained to family what was discussed with Remedios Carvajal and documented by PCP regarding reason for hospice referral . CMD answered all questions asked. Family really concerned with being able to visit pt who is Covid +. Sw called warehouse lead Prem who stated that if pt was on hospice and actively dying, 1 family member would be allowed to visit pt. Family stated that they wanted to discuss and would decided plan of care.
[2020-04-21 16:00] VITALS: BP 106/58
[2020-04-21 20:00] VITALS: BP 91/47
[2020-04-21] MEDS: ATORVASTATIN CALCIUM 40 MG TABLET PO SCH (20:53)
[2020-04-21] MEDS: OLANZAPINE 5 MG TAB PO SCH (20:53)
[2020-04-21] MEDS: FAMOTIDINE 20MG TAB 20 MG TAB PO SCH (20:54)
--- NOTE | 2020-04-21 20:55 | NUR ---
MEDS SHIFT ASSESSMENT DONE, PLEASE REFER TO CHART. DUE MEDS ADMINISTERED, TOLERATED WELL. PT'S O2 SAT= 87-88%. O2 NC FIXED AND NON-REBREATHER FIXED ON PT. MAINTAINED ON HIGH FLOW OF 60L AND 100%. INSTRUCTED PT NOT TO REMOVE HIS O2. O2 INCREASED TO 90%. CALL LIGHT WITHIN REACH. WILL MONITOR PT. Addendum: 04/21/20 at 2250 by GAURI BOSS RN RN Amended: Links added.
[2020-04-21 23:50] VITALS: BP 93/61
--- NOTE | 2020-04-22 02:00 | NUR ---
ROUNDS PT RESTING WELL, FAIRLY ASLEEP. KEPT ON HIFLOW O2 AND WITH HOB ELEVATED. WILL MONITOR PT. CALL LIGHT WITHIN REACH.
[2020-04-22 03:39] VITALS: BP 93/60
[2020-04-22 03:57] LABS: HEMATOCRIT 46.4 % (42-54); LYMPHOCYTES % (AUTO) 11.7 % (21.0-51.0); MEAN CORPUSCULAR HEMOGLOBIN 31.4 pg (27.0-33.0); MEAN CORPUSCULAR HGB CONC 35.6 g/dL (32.0-36.0); MEAN CORPUSCULAR VOLUME 88.4 fL (79-99); MONOCYTES % (AUTO) 2.2 % (3.0-13.0); NEUTROPHILS % (AUTO) 85.6 % (40.0-77.0); PLATELET COUNT (AUTO) 254 K/uL (130-400); RED BLOOD CELL COUNT(AUTO) 5.25 MIL/uL (4.50-6.20); RED CELL DISTRIBUTION WIDTH 12.9 % (11.0-15.5); WHITE BLOOD COUNT (AUTO) 11.5 K/uL (4.8-10.8)
[2020-04-22 04:12] LABS: CREATININE 1.6 mg/dL (0.5-1.5); POTASSIUM 3.2 mmol/L (3.5-5.1)
[2020-04-22] MEDS: POTASSIUM CHLORIDE 20 MEQ ERTAB PO PRN ×3 (04:32→13:11)
--- NOTE | 2020-04-22 04:35 | NUR ---
KCL PT'S KCL=3.2, STARTED PO COVERAGE. NOTED O2 SAT=83 AND PT IS HAVING SOB. RE-POSITIONED IN BED WITH HOB ELEVATED. FIXED PT'S NON-REBREATHER MASK. O2 SAT INCREASED GRADUALLY TO 93%. PT IS ON 60 LITERS OF O2 AT 80%. WILL MONITOR CLOSELY.
[2020-04-22] MEDS: CEFEPIME HCL 1 GM VIAL IVP SCH ×3 (06:01→23:50)
[2020-04-22] MEDS: INSULIN HUMULIN R 100 UNIT/ML 3ML SQ SCH ×4 (06:01→20:25)
[2020-04-22] MEDS: INSULIN GLARGINE 100 UNITS/ML 10 ML VIAL SQ SCH ×2 (06:03→20:24)
[2020-04-22 07:36] LABS: ABG BASE EXCESS 3.1 mmol/L (-2.0-3.0); ABG HCO3 25.3 mmol/L (21.0-28.0); ABG OXYGEN SATURATION 87.7 % (95.0-99.0); ABG PCO2 32 mmHg (35-48)
--- NOTE | 2020-04-22 08:00 | NUR ---
PT AAO X 3 REVIEW PLAN OF CARE, PT ON NRB ,, AND WHEN HE TAKES IT OFF NOTED HIS O2SAT DOWN TO 84% ABG'S DONE ,WITH RESULTS NOTED NO CHANGES , CONT WITH PREVIOUS O2 SETUP , AT FIO2 OF 100% FLOW CODEY OF 60 LITER /MIN. ASSIT UP IN BED , , FOR BETTER POSITION FOR HIS LUNGS, CALL LIGHT IN REACH ,, AT PRESENT OF O2 SAT OF 92% RR OF 18,
[2020-04-22 08:30] VITALS: BP 113/73
[2020-04-22] MEDS: ENOXAPARIN SODIUM 80 MG/0.8 ML SQ SCH ×2 (08:39→20:23)
[2020-04-22] MEDS: DEXAMETHASONE SOD PHOSPHATE 4 MG/ML 1ML VIAL IVP SCH (08:39)
[2020-04-22] MEDS: DOXYCYCLINE HYCLATE 100 MG TABLET PO SCH ×2 (08:40→20:23)
[2020-04-22] MEDS: DONEPEZIL HCL 5 MG TAB PO SCH (08:40)
[2020-04-22] MEDS: MEMANTINE HCL 5 MG TABLET PO SCH (08:40)
[2020-04-22] MEDS: CARVEDILOL 12.5 MG TABLET PO SCH ×2 (08:40→20:57)
[2020-04-22] MEDS: PANTOPRAZOLE SODIUM 40 MG TABLET.DR PO SCH (08:41)
[2020-04-22] MEDS: FUROSEMIDE 10 MG/ML 4ML VIAL IV SCH ×2 (08:41→20:57)
[2020-04-22] MEDS: RAMIPRIL 20 MG PO SCH (09:00)
--- NOTE | 2020-04-22 09:27 | NUR ---
f/u calls SW recd call from daughter Aniyah [phone]. Daughter stated that they had reached a family decision, but then sister Ellen spoke to a male nurse who made her doubt hospice was right decision for pt. Ellen [phone] wanting to speak to system administrator or Remedios VELEZ before agreeing to anything. Aurora notified XAVI Jamil of above and she will notify Remedios Carvajal of this as well.
[2020-04-22 12:15] VITALS: BP 100/59
--- NOTE | 2020-04-22 14:50 | NUR ---
NO HOSPICE Sw recd call from . Family has decided against hospice at this time, following call with Lakeshia DUMONT for Marcia. Zee at [facility] notified.
[2020-04-22 17:22] VITALS: BP 94/39
[2020-04-22 20:00] VITALS: BP 74/47
[2020-04-22] MEDS: FAMOTIDINE 20MG TAB 20 MG TAB PO SCH (20:22)
[2020-04-22] MEDS: ATORVASTATIN CALCIUM 40 MG TABLET PO SCH (20:23)
[2020-04-22] MEDS: OLANZAPINE 5 MG TAB PO SCH (20:23)
--- NOTE | 2020-04-22 20:50 | NUR ---
PATIENT WITH DECREASED BP AT 74/47, I INFORMED MELISA DUMONT VIA TELEPHONE. NEW ORDERS RECEIVED TO ADMINISTER 500 ML NS BOLUS, OK TO HOLD BP MEDS AND UPDATE FAMILY. NEW ORDERS TO BE CARRIED OUT.
--- NOTE | 2020-04-22 23:00 | NUR ---
NEW ORDERS WERE CARRIED OUT, NEW PIV 20 G TO RIGHT HAND WAS STARTED, 500 ML BOLUS ADMINISTERED. LATEST BP 85/46 HR 68. PATIENT WAS ABLE TO FACE-TIME WITH HIS FAMILY FOR ABOUT 30 MINUTES. PATIENT'S DAUGHTER TERRI, REQUESTED THAT I CALL BACK. I CALLED REQUESTED, LINE WAS BUSY. WILL ATTEMPT AT LATER TIME.
[2020-04-22] MEDS: SODIUM CHLORIDE 0.9% 1000ML 1,000 ML IV SCH ×2 (23:06→23:07)
[2020-04-22 23:47] VITALS: BP 81/47
--- NOTE | 2020-04-23 00:13 | NUR ---
SPOKE WITH PT'S DAUGHTER, SADAF. STATES FAMILY IS IN AGREEMENT WITH HOSPICE CARE. WILL NOTIFY AND RACHEL IN AM. PATIENT CONTINUES DNR STATUS. WILL CONT TO MONITOR CLOSELY.
[2020-04-23 03:48] VITALS: BP 79/49
[2020-04-23] MEDS: INSULIN HUMULIN R 100 UNIT/ML 3ML SQ SCH ×4 (05:27→20:39)
[2020-04-23] MEDS: CEFEPIME HCL 1 GM VIAL IVP SCH ×3 (06:31→21:16)
[2020-04-23 06:43] LABS: ALBUMIN 1.8 g/dL (3.5-5.0); BILIRUBIN,TOTAL 0.8 mg/dL (0.2-1.0); CREATININE 1.8 mg/dL (0.5-1.5); MAGNESIUM 1.9 mg/dL (1.80-2.40); PHOSPHORUS 3.5 mg/dL (2.5-4.9); POTASSIUM 3.7 mmol/L (3.5-5.1); TOTAL PROTEIN, SERUM 6.6 g/dL (6.0-8.3)
[2020-04-23] MEDS: INSULIN GLARGINE 100 UNITS/ML 10 ML VIAL SQ SCH ×2 (07:30→20:40)
[2020-04-23 08:00] VITALS: BP 87/56
[2020-04-23] MEDS: CARVEDILOL 12.5 MG TABLET PO SCH ×2 (09:00→20:01)
[2020-04-23] MEDS: RAMIPRIL 20 MG PO SCH (09:00)
[2020-04-23] MEDS: FUROSEMIDE 10 MG/ML 4ML VIAL IV SCH ×2 (09:55→21:12)
[2020-04-23] MEDS: DEXAMETHASONE SOD PHOSPHATE 4 MG/ML 1ML VIAL IVP SCH (09:55)
[2020-04-23] MEDS: PANTOPRAZOLE SODIUM 40 MG TABLET.DR PO SCH (09:55)
[2020-04-23] MEDS: MEMANTINE HCL 5 MG TABLET PO SCH (09:56)
[2020-04-23] MEDS: DOXYCYCLINE HYCLATE 100 MG TABLET PO SCH ×2 (09:56→21:16)
[2020-04-23] MEDS: DONEPEZIL HCL 5 MG TAB PO SCH (09:56)
[2020-04-23] MEDS: ENOXAPARIN SODIUM 80 MG/0.8 ML SQ SCH ×2 (09:58→21:12)
[2020-04-23 12:00] VITALS: BP 77/50
--- NOTE | 2020-04-23 14:11 | NUR ---
I HAVE SPOKEN TWICE TODAY TO THE PT'S DAUGHTER SADAF; I HAVE UPDATED HER ON HIS FLUCTUATING VS WITH LOW BLOOD PRESSURES AND THAT HIS OXYGEN LEVEL'S ARE RUNNING UPPER 80 PERCENT ON 100% HIGH FLOW OXYGEN AND NON REBREATHER MASK; PT IS AAOX3, EATING HIS MEALS, TURNING INTO PRONE POSITION WITH 1 MAN ASSISTANCE; HE DOES BECOME SOB VERY EASILY WITH ANY EXERTION; WILL CONT. TO JOHNATHON.
--- NOTE | 2020-04-23 15:10 | NUR ---
DURING HOURLY ROUNDING I FOUND PT WITHOUT HIS NON REBREATHER MASK ON, ONLY WEARING THE HIGH FLOW OXYGEN, HE WAS SLEEPING AND APPARENTLY HAD PULLED THE MASK TO THE SIDE; I CHECKED HIS O2 SAT AND IT WAS 68 TO 72%; I RE-APPLIED THE NON REBREATHER FACE MASK AND HIS SATS WENT UP TO 90%; I ALSO TURNED HIM PRONE; I HAVE BEEN TURNING PT TO PRONE POSITION ABOUT EVERY 2 HOURS; HE HAS BEEN TOLERATING IT WELL; PT IS DROWSY BUT ANSWER'S ALL QUESTIONS APPROPRIATLY, BP 90/50, HR 77; WILL CONT TO MONITOR.
--- NOTE | 2020-04-23 15:31 | NUR ---
RD FOLLOW UP Pt diet adv to GI Soft/[place]. Pt tolerating with no report of Gi distress, PO intake at 75%. Pt with intermittent confusion. Intermittent prone positioning. WBC 11.5. Cr 1.8. Severe PCM. Recommend 60mL ProMod BID Recommend 500mg Vitamin C (BID), 220mg ZnSO4 (QD), MVI (QD) RD to continue to monitor. Please notify as additional nutrition concerns arise. Thank you.
[2020-04-23 16:00] VITALS: BP 96/54
--- NOTE | 2020-04-23 16:50 | NUR ---
HOSPICE REFERRAL ON HOLD Rachel recd call this am from daughter Aniyah stating that after being called last night and this am regarding pt's low BP, family has decided to go on hospice. Rachel asked daughter for time to get update on current condition from nurse and CM and I would call her back. RACHEL spoke to nurse Yumiko and CM Christin regarding pt's current condition. Per nurse, pt's BP dropped at night to 70s/40 and is in 80s /40 this am. Pt awake and alert, watching TV, eating, using urinal, is not actively dying. RACHEL spoke to CM who also stated that RT reports that at pt's current HI flow rate, pt would not be able to go home even on hospice. Discussed families concern that day 14 is Tuesday and will pt be moved off covid floor. CM states that pt is still showing s/s of covid and would remain on covid floor. Rachel called daughter back and informed of information gathered. Daughter asked if pt's children could meet with me so that everyone is on the same page. Rachel met with pt's 2 daughters, 1 daughter in law and 5 sons outside in parking lot. RACHEL informed family of information provided by CM and nurse. We discussed options- to continue treating and see if pt improves, with the understanding pt could go into crisis at anytime related to his respiratory status and low BP. Pt has made pt DNI and DNR, so we would allow pt to pass naturally. Or family can make him hospice/ comfort measure. Family in agreement to wait and continue treating and keep pt DNI DNR informed Addendum: 04/24/20 at 0839 by ROMAN LLAMAS Family has made pt DNI and DNR
[2020-04-23] MEDS: ATORVASTATIN CALCIUM 40 MG TABLET PO SCH (21:11)
[2020-04-23] MEDS: OLANZAPINE 5 MG TAB PO SCH (21:11)
[2020-04-23] MEDS: FAMOTIDINE 20MG TAB 20 MG TAB PO SCH (21:12)
[2020-04-23 21:19] VITALS: BP 99/63
--- NOTE | 2020-04-24 00:27 | NUR ---
encouraged the patient 6 times to lie prone and he refuses.
[2020-04-24 01:07] VITALS: BP 89/46
--- NOTE | 2020-04-24 02:37 | NUR ---
spoke with moshe, daughter of the patient, twice and updated her on the patient's status and how he refuses to lie prone and he desats of 78 percent even with high flow and nonrebreather mask. she is worried and understands
[2020-04-24 04:48] VITALS: BP 93/31
[2020-04-24] MEDS: INSULIN HUMULIN R 100 UNIT/ML 3ML SQ SCH ×4 (06:08→20:22)
[2020-04-24] MEDS: INSULIN GLARGINE 100 UNITS/ML 10 ML VIAL SQ SCH ×2 (06:08→20:22)
[2020-04-24] MEDS: CEFEPIME HCL 1 GM VIAL IVP SCH ×3 (06:17→21:24)
[2020-04-24] MEDS: CARVEDILOL 12.5 MG TABLET PO SCH ×2 (09:00→19:34)
[2020-04-24] MEDS: RAMIPRIL 20 MG PO SCH (09:00)
[2020-04-24 09:30] VITALS: BP 95/62
[2020-04-24] MEDS: ENOXAPARIN SODIUM 80 MG/0.8 ML SQ SCH ×2 (10:46→21:25)
[2020-04-24] MEDS: FUROSEMIDE 10 MG/ML 4ML VIAL IV SCH (10:47)
[2020-04-24] MEDS: DEXAMETHASONE SOD PHOSPHATE 4 MG/ML 1ML VIAL IVP SCH (10:47)
[2020-04-24] MEDS: DOXYCYCLINE HYCLATE 100 MG TABLET PO SCH ×2 (10:47→21:25)
[2020-04-24] MEDS: MEMANTINE HCL 5 MG TABLET PO SCH (10:47)
[2020-04-24] MEDS: DONEPEZIL HCL 5 MG TAB PO SCH (10:47)
[2020-04-24] MEDS: PANTOPRAZOLE SODIUM 40 MG TABLET.DR PO SCH (10:47)
[2020-04-24 14:07] VITALS: BP 81/55
--- NOTE | 2020-04-24 16:08 | NUR ---
PT HAS TAKEN OXYGEN OFF SEVERAL TIMES--NON-REBREATHER MASK AND HIGH FLOW OXYGEN NC-- PT'S O2 SATS DROP IN THE 60'S WHEN HE REMOVES HIS O2 AND HE BECOMES DISORIENTED; I HAVE TOLD HIM SEVERAL TIMES HOW IMPORTANT IT IS TO KEEP IT ON, REINFORCEMENT NEEDED IN THIS AREA; WHEN O2 RE-APPLIED HE RETURN'S TO SAT'S IN THE 80'S; WILL CONT TO MONITOR HIM CLOSELY IN PERSON AND ON CAMERA SET UP; I HAVE ALSO SPOKEN TO HIS DAUGHTER TWICE TODAY ON THE PHONE AND UPDATED HER ON HIS CONDITION; SHE ALSO CALLED AND ASKED FOR HIS BELONGINGS WHICH WE HAVE GIVEN HER VIA SECURITY.
--- NOTE | 2020-04-24 17:06 | NUR ---
Aurora recd call from daughter for update on pt. Dgtr states nurse reports that pt is taking off mask and when he does his lips and fingers turning blue. Aurora asked for time to call nurse and will call back. Aurora spoke to nurse yumiko who states she has been updating daughter through out the day on pt. Was honest with daughter that pt is taking off mask, but pt is easily redirected and will put mask back on. Pt is calm, watching TV, stays in room. Nurse reporting that pt is not agitated or anxious. Aurora called daughter back and repeated what Yumiko told me and had already told daughter on previous call. Explained to daughter that there is no way to force pt to keep mask on, but we when we talk to him and explain why he needs mask, pt does put mask back on. Provided daughter with emotional support, was understanding on how hard it is that they can't see pt or comfort him. Explained to daughter that it is just not possible at this time to let family enter hospital and see pt. Reassured daughter that nurses are taking good care of her father and doing best to keep pt comfortable and keep family updated. Daughter voiced understanding and appreciation for all we are doing for pt.
[2020-04-24 17:26] VITALS: BP 118/44
--- NOTE | 2020-04-24 18:54 | NUR ---
SUMMARY OF SHIFT: PT SEVERAL TIMES REMOVED HIS OXYGEN AND WOULD QUICKLY DESAT; I HAVE PLACED DUDERM PADDING ON HIS CHEEKS AND BEHIND HIS EARS TO PAD WHERE THE OXYGEN TUBING LIES TO PREVENT BREAKDOWN AND THEN USED OPSITE'S TO TAPE THE TUBING ONTO HIS CHEEKS TO PREVENT HIM FROM SO EASILY DISLODGING THE NASAL CANULA; PT APPEARS TO BE TOLERATING THE TUBING BEING TAPED WELL; PT ASKED TO TALK TO HIS DAUGHTER, I CALLED HER ON HOSPITAL CELL PHONE AND PUT IT ON SPEAKER AND LET THEM TALK TO EACH OTHER FOR ABOUT 15 MINUTES, HE WAS GETTING SOB TALKING SO I ENDED THE CALL; I ASKED THE DAUGHTER IF SHE HAD ANY QUESTIONS I COULD HELP HER WITH AND SHE DID NOT.
[2020-04-24 20:00] VITALS: BP 95/50
[2020-04-24] MEDS: ATORVASTATIN CALCIUM 40 MG TABLET PO SCH (21:24)
[2020-04-24] MEDS: OLANZAPINE 5 MG TAB PO SCH (21:24)
[2020-04-24] MEDS: FAMOTIDINE 20MG TAB 20 MG TAB PO SCH (21:25)
--- NOTE | 2020-04-24 23:23 | NUR ---
pt is very agitated, states he wants to go home, he is also taking off his oxygen. Assessed o2 and he desats to 80%. Convinced him to put it back on and he did. I called his daughter Aniyah to talk to him and he calmed down. States he will go to sleep. o2 sats right now at 89%. Pt is asymptomaitc, no signs and symptoms of being in distress or in any forms of pain. will continue to monitor
[2020-04-25] VITALS (7 sets, daily range): BP systolic 74–115; BP diastolic 40–71
--- NOTE | 2020-04-25 00:53 | NUR ---
pts o2 sats at 80% on a nonrebreather and hi flow. Tried all fingers, same reading. Advised pt to prone position and he did. Pt is asymptomatic, no signs of being in distress. will monitor
--- NOTE | 2020-04-25 05:19 | NUR ---
pt states he does not feel well, checked vitals, bp is 77/46, o2 sats at 69% RR 24, no fever. Paged field examiner, awaiting orders, will monitor pt
--- NOTE | 2020-04-25 05:21 | NUR ---
bolus 500ml, current vitals bp at 102/77, o2 sats at 84, rr at 20. Pt states he feels better now. He is aymptomatic, no more ss of being in distress.
[2020-04-25 05:44] LABS: HEMATOCRIT 43.6 % (42-54); MEAN CORPUSCULAR HEMOGLOBIN 30.9 pg (27.0-33.0); MEAN CORPUSCULAR HGB CONC 34.6 g/dL (32.0-36.0); MEAN CORPUSCULAR VOLUME 89.3 fL (79-99); RED BLOOD CELL COUNT(AUTO) 4.88 MIL/uL (4.50-6.20); RED CELL DISTRIBUTION WIDTH 13.2 % (11.0-15.5); WHITE BLOOD COUNT (AUTO) 16.8 K/uL (4.8-10.8)
[2020-04-25] MEDS ORDERED: DEXTROSE 50%-WATER 50 ML DISP.SYRIN IV ONE (06:17)
[2020-04-25 06:24] LABS: CREATININE 1.4 mg/dL (0.5-1.5); POTASSIUM 3.2 mmol/L (3.5-5.1)
--- NOTE | 2020-04-25 06:25 | NUR ---
pt blood glucose it at 35, paged Dr. moscoso, ordered d50 ivp, repeat glucose test is at 160. Pt is awake alert and oriented. No complains of being ing distress
[2020-04-25] MEDS ORDERED: DEXTROSE 50%-WATER 50 ML DISP.SYRIN IV SCH (06:30)
[2020-04-25] MEDS: INSULIN HUMULIN R 100 UNIT/ML 3ML SQ SCH ×4 (06:32→20:23)
[2020-04-25] MEDS: INSULIN GLARGINE 100 UNITS/ML 10 ML VIAL SQ SCH (06:32)
[2020-04-25] MEDS: DONEPEZIL HCL 5 MG TAB PO SCH (08:30)
[2020-04-25] MEDS: ENOXAPARIN SODIUM 80 MG/0.8 ML SQ SCH (08:30)
[2020-04-25] MEDS: PANTOPRAZOLE SODIUM 40 MG TABLET.DR PO SCH (08:30)
[2020-04-25] MEDS: CEFEPIME HCL 1 GM VIAL IVP SCH ×3 (08:30→21:55)
[2020-04-25] MEDS: MEMANTINE HCL 5 MG TABLET PO SCH (08:30)
[2020-04-25] MEDS: RAMIPRIL 20 MG PO SCH (08:31)
[2020-04-25] MEDS: CARVEDILOL 12.5 MG TABLET PO SCH ×2 (08:31→20:23)
[2020-04-25] MEDS: DEXAMETHASONE SOD PHOSPHATE 4 MG/ML 1ML VIAL IVP SCH (08:36)
--- NOTE | 2020-04-25 18:00 | NUR ---
NOTE PATIENT REMAINS ON O2 AT 100% NRB AND HIGH FLOW O2 AT 70LPM. KELIN MCKEON. HE TOSSES AND TURNS ALL DAY. HE REMOVES O2 SET UPS AND HE IS CONSTANTLY REMINDED TO KEEP IT ON. HE IS A DNR. FAMILY MEMBERS CALL CONSTANTLY FOR UPDATES. OTHERWISE HE HAS NOT HAD ANY CHANGE IN OVERALL CONDITION. HE WAS A LITTLE MORE CONVERSANT IN THE AFTERNOON.
[2020-04-25] MEDS: POTASSIUM CHLORIDE 20 MEQ ERTAB PO PRN (18:15)
[2020-04-25] MEDS: ENOXAPARIN SODIUM 40 MG/0.4 ML SYRINGE SQ SCH (20:22)
[2020-04-25] MEDS: FAMOTIDINE 20MG TAB 20 MG TAB PO SCH (20:23)
[2020-04-25] MEDS: OLANZAPINE 5 MG TAB PO SCH (20:23)
[2020-04-25] MEDS: ATORVASTATIN CALCIUM 40 MG TABLET PO SCH (20:23)
[2020-04-26 01:02] VITALS: BP 104/74
[2020-04-26 04:45] VITALS: BP 97/75
[2020-04-26] MEDS: CEFEPIME HCL 1 GM VIAL IVP SCH ×3 (06:41→22:51)
[2020-04-26] MEDS: INSULIN HUMULIN R 100 UNIT/ML 3ML SQ SCH ×4 (06:42→22:03)
--- NOTE | 2020-04-26 08:00 | NUR ---
NOTE PATIENT HAD AN EPISODE WHERE HE BECAME VERY SOB AFTER A COUGHING SPELL PARTLY BECAUSE HE REMOVES HIS NRB AND HIGH FLOW O2. HE CALLED NURSES IN THE ROOM BECAUSE HE HAD CHEST PAIN AND SOB. POSITIONED HIM WITH HOB ELEVATED AND REAPPLIED HIGH FLOW O2 AND NRB AND GAVE MORPHINE PRN. AFTER ABOUT 30 MINUTES HE WAS ASLEEP IN THE POSITION I LEFT HIM IN, HIGH FOWLERS, AND SATS 94%. I HAD RECEIVED ORDERS FROM COOKING CHEF TO CHANGE TO BIPAP AND SHE WOULD CALL FAMILY TO DISCUSS COMFORT MEASURES SINCE HE IS A DNR.
[2020-04-26] MEDS: DEXAMETHASONE SOD PHOSPHATE 4 MG/ML 1ML VIAL IVP SCH (08:11)
[2020-04-26] MEDS: PANTOPRAZOLE SODIUM 40 MG TABLET.DR PO SCH (08:12)
[2020-04-26] MEDS: MEMANTINE HCL 5 MG TABLET PO SCH (08:12)
[2020-04-26] MEDS: ENOXAPARIN SODIUM 40 MG/0.4 ML SYRINGE SQ SCH ×2 (08:12→22:00)
[2020-04-26] MEDS: DONEPEZIL HCL 5 MG TAB PO SCH (08:12)
[2020-04-26] MEDS: CARVEDILOL 12.5 MG TABLET PO SCH ×3 (08:13→21:00)
[2020-04-26] MEDS ORDERED: MORPHINE SULFATE 2 MG/ML 1ML SYG ONE (09:03)
[2020-04-26 09:30] VITALS: BP 158/77
[2020-04-26 11:27] VITALS: BP 99/49
[2020-04-26 16:02] VITALS: BP 95/55
--- NOTE | 2020-04-26 17:45 | NUR ---
PATIENT REMAINS ON NRB ADN HIGH FLOW O2. NURSE FAM SPOKE TO FAMILY ON TELEPHONE. FAMILY CALLED SEVEREAL TIMES AND WE EVEN HAD A ZOOM MEETING. PATIENT DID NOT HAVE AN EPISODE LIKE THIS AM AGAIN AND REMAINED IN 90'S O2 SATS. FAMILY SAW PATIENT ON VIDEO CALL NOT IN SO MUCH DISTRESS EVEN WHEN COMMUNICATING AND THEY HAVE QUESTIONS FOR DOCTOR. THEY WANT TO HAVE ZOOM MEETING WITH DOCTOR TOMORROW IF POSSIBLE. WILL INFORM MD WHEN THEY ROUND TOMORROW AND INFORM NURSE PHOENIX.
[2020-04-26 20:40] VITALS: BP 90/51
[2020-04-26] MEDS: FAMOTIDINE 20MG TAB 20 MG TAB PO SCH (21:00)
[2020-04-26] MEDS: OLANZAPINE 5 MG TAB PO SCH (21:59)
[2020-04-26] MEDS: ATORVASTATIN CALCIUM 40 MG TABLET PO SCH (21:59)
[2020-04-27] VITALS (7 sets, daily range): BP systolic 93–140; BP diastolic 50–86
[2020-04-27] MEDS: MORPHINE SULFATE 2 MG/ML 1ML SYG IVP PRN ×4 (02:16→16:55)
[2020-04-27] MEDS ORDERED: DEXTROSE 50%-WATER 50 ML DISP.SYRIN IV ONE (05:50)
[2020-04-27] MEDS: CEFEPIME HCL 1 GM VIAL IVP SCH ×2 (05:59→14:00)
[2020-04-27] MEDS ORDERED: DEXTROSE 50%-WATER 50 ML DISP.SYRIN IV PRN (06:00)
[2020-04-27] MEDS ORDERED: GLUCAGON 1MG KIT 1 MG ML IM PRN (06:00)
[2020-04-27] MEDS: INSULIN HUMULIN R 100 UNIT/ML 3ML SQ SCH ×4 (06:36→22:14)
[2020-04-27] MEDS: DONEPEZIL HCL 5 MG TAB PO SCH (09:30)
[2020-04-27] MEDS: MEMANTINE HCL 5 MG TABLET PO SCH (09:30)
[2020-04-27] MEDS: PANTOPRAZOLE SODIUM 40 MG TABLET.DR PO SCH (09:30)
[2020-04-27] MEDS: DEXAMETHASONE SOD PHOSPHATE 4 MG/ML 1ML VIAL IVP SCH (09:31)
[2020-04-27] MEDS: ENOXAPARIN SODIUM 40 MG/0.4 ML SYRINGE SQ SCH ×2 (09:31→20:46)
[2020-04-27] MEDS: CARVEDILOL 12.5 MG TABLET PO SCH ×2 (09:31→20:48)
[2020-04-27] MEDS: OLANZAPINE 5 MG TAB PO SCH (20:46)
[2020-04-27] MEDS: ATORVASTATIN CALCIUM 40 MG TABLET PO SCH (20:46)
[2020-04-27] MEDS: FAMOTIDINE 20MG TAB 20 MG TAB PO SCH (20:49)
--- NOTE | 2020-04-27 23:48 | NUR ---
PATIENT RECEIVED IN BED, AAOX2, CONT WITH REMOVING NRB AND HIGH FLOW WHEN HE FIDGETS IN BED. I SPOKE WITH PT'S DAUGHTER, UPDATED ON STATUS. NO CHANGE IN CONDITION. WILL CONT TO MONITOR CLOSELY. CALL ADAME IS WITHIN REACH. Addendum: 04/27/20 at 1057 by THIAGO WILSON RN RN PATIENT IS DNR/DNI.
--- NOTE | 2020-04-28 01:29 | NUR ---
I CALLED PT'S DAUGHTER PER REQUEST, NO ANSWER. WILL AWAIT FOR FAMILY TO CALL BACK FOR UPDATE.
[2020-04-28] MEDS: LORAZEPAM 2 MG/ML 1 ML VIAL IVP PRN ×2 (03:23→10:43)
--- NOTE | 2020-04-28 03:23 | NUR ---
ADMINISTERED ATIVAN 0.5MG IV PER PRN ORDER FOR ANXIETY AND AGITATION. I CALLED RESPIRATORY TO PLACE PRN BIPAP FOR COMFORT. WILL CONT TO MONITOR.
[2020-04-28 03:30] VITALS: BP 106/43
[2020-04-28] MEDS: INSULIN HUMULIN R 100 UNIT/ML 3ML SQ SCH ×4 (06:13→20:54)
[2020-04-28 08:00] VITALS: BP 123/57
[2020-04-28] MEDS: CARVEDILOL 12.5 MG TABLET PO SCH ×2 (09:00→21:00)
[2020-04-28] MEDS: DEXAMETHASONE SOD PHOSPHATE 4 MG/ML 1ML VIAL IVP SCH (10:19)
[2020-04-28] MEDS: PANTOPRAZOLE SODIUM 40 MG TABLET.DR PO SCH (10:19)
[2020-04-28] MEDS: MEMANTINE HCL 5 MG TABLET PO SCH (10:19)
[2020-04-28] MEDS: ENOXAPARIN SODIUM 40 MG/0.4 ML SYRINGE SQ SCH ×2 (10:20→20:40)
[2020-04-28] MEDS: DONEPEZIL HCL 5 MG TAB PO SCH (10:20)
[2020-04-28] MEDS: MORPHINE SULFATE 2 MG/ML 1ML SYG IVP PRN (10:44)
[2020-04-28 12:00] VITALS: BP 168/91
--- NOTE | 2020-04-28 17:00 | NUR ---
BIPAP PT IN BED, RESPIRATIONS SHALLOW, RATE 38-40. PT CALM, DENIES PAIN, BIPAP IN PLACE
[2020-04-28 17:31] VITALS: BP 116/69
[2020-04-28] MEDS: OLANZAPINE 5 MG TAB PO SCH (20:40)
[2020-04-28] MEDS: ATORVASTATIN CALCIUM 40 MG TABLET PO SCH (20:40)
[2020-04-28] MEDS: FAMOTIDINE 20MG TAB 20 MG TAB PO SCH (20:41)
[2020-04-28 20:58] VITALS: BP 112/61
--- NOTE | 2020-04-28 20:59 | NUR ---
COMFIRM FAMILY WISHES, PT IS DNR AWARE THAT IF PATIENT BECOMES IN DISTRESS WE DO HAVE AN ORDER FOR MORPHINE AND ATIVAN TO KEEP HIM COMFORTABLE FAMILY COMFIRM DRN STATUS AND AWARE OF PLAN OF CARE PT ON BIPAP FULL SETTING RESPIRATIONS BETWEEN 38-41 PT ALERT AND ORIENTED TO SELF AND PLACE ANSWERED QUESTIONS COHERENT DENIES ANY PAIN
--- NOTE | 2020-04-28 23:00 | NUR ---
pt's son at bedside aware patient is DNR, son confirms DNR status and is aware of pt's plan of care
[2020-04-29] MEDS: MORPHINE SULFATE 2 MG/ML 1ML SYG IVP PRN ×3 (00:58→10:36)
[2020-04-29 01:58] VITALS: BP 105/71
[2020-04-29] MEDS: LORAZEPAM 2 MG/ML 1 ML VIAL IVP PRN ×5 (04:34→20:42)
[2020-04-29] MEDS: LORAZEPAM 2 MG/ML 1 ML VIAL IVP SCH (04:54)
[2020-04-29 05:07] VITALS: BP 126/76
[2020-04-29] MEDS: INSULIN HUMULIN R 100 UNIT/ML 3ML SQ SCH ×4 (06:56→21:00)
--- NOTE | 2020-04-29 08:00 | NUR ---
AM ASSESSMENT PT IN BED, AWAKENS WITH VERBAL STIMULATION, ORIENTED X1. RESPIRATIONS 30-40 , SHALLOW AND EQUAL, PT ON BIPAP FIO2 100%. DENIES PAIN. TOTAL CARE WITH ADLS, TURNED Q 2 HOURS AND REPOSITIONED FOR COMFORT NEEDED. SON AT BEDSIDE.
[2020-04-29] MEDS: MEMANTINE HCL 5 MG TABLET PO SCH (09:00)
[2020-04-29] MEDS: CARVEDILOL 12.5 MG TABLET PO SCH ×2 (09:00→21:00)
[2020-04-29] MEDS: PANTOPRAZOLE SODIUM 40 MG TABLET.DR PO SCH (09:00)
[2020-04-29] MEDS: DONEPEZIL HCL 5 MG TAB PO SCH (09:00)
[2020-04-29 10:08] VITALS: BP 102/56
[2020-04-29] MEDS: DEXAMETHASONE SOD PHOSPHATE 4 MG/ML 1ML VIAL IVP SCH (10:18)
[2020-04-29] MEDS: ENOXAPARIN SODIUM 40 MG/0.4 ML SYRINGE SQ SCH ×2 (10:19→20:26)
--- NOTE | 2020-04-29 11:15 | NUR ---
BENCHMARK MARTIN MIX HOUSE OPERATOR HERE TO SEE PT, AWARE OF LOW O2 SATS AND PT ON BIPAP. SPOKE TO SON REGARDING PT STATUS.
[2020-04-29 12:29] VITALS: BP 137/60
--- NOTE | 2020-04-29 12:30 | NUR ---
HOSPICE PT'S SON Annette SIMONS STATES FAMILY REQUESTING HOSPICE CARE FOR PT, STATES "ALL IN AGREEMENT". MADE AWARE WILL NOTIFY PCP AND CASE MANAGEMENT.
[2020-04-29] MEDS: MORPHINE SULFATE 2 MG/ML 1ML SYG IV PRN ×4 (14:23→23:46)
--- NOTE | 2020-04-29 14:25 | NUR ---
RESPIRATIONS PT IN BED WITH BIPAP ON, RESPIRATIONS LESS LABORED, LESS ANXIETY, NO SIGNS OF PAIN. SON AT BEDSIDE
--- NOTE | 2020-04-29 15:21 | NUR ---
Family notification Son remains at bedside and aware of pt's terminal condition
--- NOTE | 2020-04-29 15:45 | NUR ---
ADDENDUM 04/28/20 FAMILY NOTIFICATION AND UPDATE SPOKE TO SADAF MCADAMS AT BEDSIDE GIVEN PT STATUS UPDATE AND PLAN OF CARE . ALL QUESTIONS ANSWERED. GIVEN PASSWORD FOR CALLS
[2020-04-29 17:49] VITALS: BP 114/56
--- NOTE | 2020-04-29 18:04 | NUR ---
REFERRED TO [facility]IENT [facility] Andra Steele, [facility] [place], spoke with patient's daughters, Jessie Maki and Ellen Baxter. Both stated that family is in agreement for hospice and understand patient will need in patient hospice. Consent obtained for referral to [facility]. Referral sent. SW, Andra Steele, spoke to [facility] [employer], Kaela Galvez and informed of referral. Pending eval and acceptance.
--- NOTE | 2020-04-29 18:15 | NUR ---
RESPIRATIONS PT IN BED, AWAKENS WITH VERBAL STIMULATION, CONTINUES WITH BIPAP, RESPIRATIONS SHALLOW, RATE 38-42. PT REFUSED TO BE TURNED AND REPOSITIONED FOR COMFORT. SON AT BEDSIDE.
--- NOTE | 2020-04-29 18:34 | NUR ---
EMERGENCY CONTACTS Jessie Maki (daughter) Ellen Baxter (daughter)
[2020-04-29 20:00] VITALS: BP 101/60
--- NOTE | 2020-04-29 20:30 | NUR ---
pt not able to tolerate removing the bipap even for medications patient saturations in the low 70's
[2020-04-29] MEDS: FAMOTIDINE 20MG TAB 20 MG TAB PO SCH (21:00)
[2020-04-29] MEDS: ATORVASTATIN CALCIUM 40 MG TABLET PO SCH (21:00)
[2020-04-29] MEDS: OLANZAPINE 5 MG TAB PO SCH (21:00)
--- NOTE | 2020-04-29 21:13 | NUR ---
BENCHMARK PAGED PT DSOB RESTLESS
[2020-04-29] MEDS ORDERED: LORAZEPAM 2 MG/ML 1 ML VIAL IVP SCH (21:45)
[2020-04-30 00:04] VITALS: BP 124/57
[2020-04-30] MEDS: LORAZEPAM 2 MG/ML 1 ML VIAL IVP PRN ×5 (02:17→15:10)
[2020-04-30] MEDS: LORAZEPAM 2 MG/ML 1 ML VIAL IVP SCH (04:45)
[2020-04-30] MEDS: MORPHINE SULFATE 2 MG/ML 1ML SYG IV PRN ×5 (06:04→18:25)
[2020-04-30] MEDS: INSULIN HUMULIN R 100 UNIT/ML 3ML SQ SCH ×3 (07:30→16:30)
[2020-04-30 08:00] VITALS: BP 107/71
--- NOTE | 2020-04-30 08:00 | NUR ---
PATIENT RR:40, O2 SAT:77%, SON AT BEDSIDE. ATIVAN AND MORPHINE GIVEN. WILL CONTINUE TO MONITOR.
[2020-04-30] MEDS: CARVEDILOL 12.5 MG TABLET PO SCH (09:00)
[2020-04-30] MEDS: DONEPEZIL HCL 5 MG TAB PO SCH (09:00)
[2020-04-30] MEDS: MEMANTINE HCL 5 MG TABLET PO SCH (09:00)
[2020-04-30] MEDS: PANTOPRAZOLE SODIUM 40 MG TABLET.DR PO SCH (09:00)
[2020-04-30] MEDS: DEXAMETHASONE SOD PHOSPHATE 4 MG/ML 1ML VIAL IVP SCH (09:21)
[2020-04-30] MEDS: ENOXAPARIN SODIUM 40 MG/0.4 ML SYRINGE SQ SCH (09:21)
--- NOTE | 2020-04-30 10:54 | NUR ---
1054-Follow up with [facility]. RACHEL phoned Kaela/Miguel re-status of referral. Kaela requesting doctor's order for Eval and Admit if appropriate. RACHEL notified CASEY Waller/[facility]. Addendum: 04/30/20 at 1359 by CYNDY LLAMAS Amended: Links added.
[2020-05-01] VITALS: BP 65/45
== END 2020-04-30 15:19 | DRG 177 ==
LOC: EDH 15:30 → OBSVTOIN 18:55 → INTOOBSV 18:55 → EDHIP 18:55 → 2AH 04-15 06:40 → 2CH 04-17 16:13 → 4DH 04-18 22:01
PROVIDERS: ADMIT Internal Medicine Critical Care Medicine; ATTEND Internal Medicine Critical Care Medicine
PROC: 30233K1 Transfusion of Nonautologous Frozen Plasma into Peripheral Vein, Percutaneous Approach (ICD-10-PCS; principal; 2020-04-16)
DX: U07.1 COVID-19 (principal); J96.01 Acute respiratory failure with hypoxia; G92 Toxic encephalopathy; J12.89 Other viral pneumonia; I25.10 Atherosclerotic heart disease of native coronary artery without angina pectoris; I10 Essential (primary) hypertension; Z66 Do not resuscitate; Z51.5 Encounter for palliative care; F41.9 Anxiety disorder, unspecified; E11.9 Type 2 diabetes mellitus without complications; I95.9 Hypotension, unspecified; Z79.4 Long term (current) use of insulin; Z79.899 Other long term (current) drug therapy; Z95.1 Presence of aortocoronary bypass graft; Z91.19 Patient's noncompliance with other medical treatment and regimen
CPT/HCPCS: 36415; 36600; 71045; 71250; 80048; 80053; 80076; 82550; 82728; 82803; 82947; 82948; 83605; 83615; 83735; 83880; 84100; 84132; 84145; 84484; 85025; 85027; 85378; 85384; 85610; 85730; 86140; 86850; 86900; 86901; 86927; 87040; 87804; 93005; 93970; 94660; 94760; 99291; A4606; G0378; J0456; J0692; J1100; J1630; J1650; J1815; J1940; J2060; J3480; J7050; J7070; P9017; U0003

== ENCOUNTER 2020-04-30 15:20 | Inpatient (IN) | payer OTHER ==
[~2020-04-30 15:20] MED LIST changes: +PANT40TA25 PO; -PANT40TA55 PO
[2020-05-01] MEDS ORDERED: LORAZEPAM 2 MG/ML 1 ML VIAL IVP PRN
[2020-05-01] MEDS ORDERED: ACETAMINOPHEN 650 MG SUPPOSITORY RC PRN
[2020-05-01] MEDS ORDERED: GLYCOPYRROLATE 1 MG/5 ML SYRINGE IM PRN
[2020-05-01] MEDS ORDERED: BISACODYL 10 MG SUPP.RECT RC PRN
[2020-05-01] MEDS ORDERED: ONDANSETRON HCL 4 MG/2 ML VIAL IVP PRN
[2020-05-01] MEDS ORDERED: MORPHINE SULFATE 2 MG/ML 1ML SYG IVP PRN
[2020-05-01] MEDS ORDERED: MORPHINE SULFATE 2 MG/ML 1ML SYG IM PRN
--- NOTE | 2020-05-01 01:45 | NUR ---
Summoned by staff to patient's room.Patient supine in bed, family member at bedside. Pupils fixed and dilated, no blood pressure,no breath sounds or heart tones audible on auscultation.
--- NOTE | 2020-05-01 01:54 | NUR ---
Pt . Two nurses verified heart tones. [facility] nurse has been contacted.
== END 2020-05-01 01:45 | disposition expired | DRG 177 ==
LOC: 4DH 15:20
PROVIDERS: ADMIT Internal Medicine Hematology & Oncology; ATTEND Internal Medicine Hematology & Oncology
DX: U07.1 COVID-19 (principal); J12.89 Other viral pneumonia; J96.01 Acute respiratory failure with hypoxia; Z66 Do not resuscitate; F41.9 Anxiety disorder, unspecified; I25.10 Atherosclerotic heart disease of native coronary artery without angina pectoris; I10 Essential (primary) hypertension; E11.9 Type 2 diabetes mellitus without complications; Z91.14 Patient's other noncompliance with medication regimen; Z79.4 Long term (current) use of insulin; Z95.1 Presence of aortocoronary bypass graft
CPT/HCPCS: G0378; J2060